=== PATIENT | male | born 1985 | race Caucasian/White ===

== ENCOUNTER 2019-02-24 23:36 | Emergency (ER) | payer MEDICAID ==
[~2019-02-24] VITALS: Ht 182.9 cm; Wt 77.1 kg
[2019-02-25 00:07] LABS: Basophils # (auto) 0 uL; Eosinophils # (auto) 0.1 uL; Eosinophils % (auto) 0.9 % (0.0-7.0); Hematocrit 38.1 % (41.0-53.0); Hemoglobin 12.8 g/dL (13.5-17.5); Lymphocytes # (auto) 0.7 uL; Lymphocytes % (auto) 5.7 % (10.0-50.0); Mean Corpuscular Hemoglobin 29.2 pg (28.0-32.0); Mean Corpuscular Hgb Conc. 33.7 g/dL (32.0-36.0); Mean Corpuscular Volume 86.7 fL (80.0-100.0); Monocytes # (auto) 1.1 uL; Monocytes % (auto) 9.1 % (0.0-12.0); Neutrophils # (auto) 10.1 uL; Neutrophils % (auto) 84.3 % (37.0-80.0); Platelet Count (auto) 333 10^3/uL (140-450); Red Cell Distribution Width 13.7 % (11.8-14.3)
[2019-02-25] MEDS ORDERED: ACETAMINOPHEN 325 MG TAB PO ONE (00:15)
[2019-02-25 00:19] LABS: Potassium 3.6 mmol/L (3.5-5.1)
[2019-02-25 00:22] LABS: Albumin 2.8 g/dL (3.4-5.0); Calcium 8.3 mg/dL (8.5-10.1)
[2019-02-25 00:23] LABS: INR 1.07 (0.9-1.15); Prothrombin Time 11.4 sec (9.27-12.13)
[2019-02-25 00:28] LABS: BUN/Creatinine Ratio 7.7; Bilirubin, Total 0.5 mg/dL (0.2-1.0); Total Protein 6.9 g/dL (6.4-8.2)
[2019-02-25] MEDS ORDERED: LEVOFLOXACIN 750MG 150 ML IV ONE (01:45)
[2019-02-25 06:00] VITALS: BP 122/76
== END 2019-02-25 04:52 | disposition home or self-care (01) ==
LOC: EDBD 23:36 → ER 23:40
DX: J18.9 Pneumonia, unspecified organism (principal); D72.829 Elevated white blood cell count, unspecified
CPT/HCPCS: 36415; 71045; 80053; 83735; 85025; 85610; 96365; 99284; J1956